=== PATIENT | male | born 1945 | race Caucasian/White ===

== ENCOUNTER 2019-03-10 13:53 | Outpatient (CLI) | payer MEDICARE, BC ==
[~2019-03-10 13:53] MED LIST: BENAZEPRIL HCL40 MG ORAL; DIOVAN160 MG ORAL; EPLERENONE50 MG PO; LEXAPRO10 MG ORAL; NEXIUM40 MG ORAL; VITAMIN D1000 UNI1 ORAL
--- NOTE | 2019-03-10 14:50 | Diagnostic Imaging Report ---
Indication: Cough Technique: 2 views of the chest Comparison: 05/05/2013 Findings: There are bilateral basilar atelectatic changes. The heart size is upper limits normal. The aorta is tortuous. There is no significant interim change Impression: No acute process
== END 2019-03-10 15:53 | disposition home or self-care (01) ==
LOC: RAD 13:53
DX: Z01.818 Encounter for other preprocedural examination (principal); R05 Cough; Z01.812 Encounter for preprocedural laboratory examination
CPT/HCPCS: 71046